=== PATIENT | female | born 1990 | race Caucasian/White ===

== ENCOUNTER 2019-07-18 10:13 | Emergency (ER) | payer OTHER ==
[~2019-07-18] VITALS: Ht 165.1 cm; Wt 74.4 kg
[2019-07-18 10:19] VITALS: Ht 165.1 cm; Wt 74.4 kg
[2019-07-18 11:09] VITALS: BP 136/101
== END 2019-07-18 11:09 | disposition home or self-care (01) ==
LOC: ED 10:13
DX: T18.9XXA Foreign body of alimentary tract, part unspecified, initial encounter (principal); R03.0 Elevated blood-pressure reading, without diagnosis of hypertension; X58.XXXA Exposure to other specified factors, initial encounter; Y93.89 Activity, other specified; Y92.89 Other specified places as the place of occurrence of the external cause; Y99.8 Other external cause status